=== PATIENT | female | born 1980 | race Two or more races ===

== ENCOUNTER 2016-08-13 21:47 | Emergency (ER) | payer SELFPAY ==
[~2016-08-13] VITALS: Ht 154.9 cm; Wt 82.0 kg
[2016-08-13] MEDS ORDERED: ONDANSETRON 2MG/ML, 2ML ONE (22:40)
[2016-08-13] MEDS ORDERED: MORPHINE SULFATE 4 MG/ML, 1ML ONE (22:40)
[2016-08-13 22:59] LABS: HCG UR OBC PASS
[2016-08-13] MEDS ORDERED: SODIUM CHLORIDE 0.9% 1,000ML IVBOLUS ONE (23:00)
[2016-08-13] MEDS ORDERED: ONDANSETRON 2MG/ML, 2ML IVPush ONE (23:00)
[2016-08-13] MEDS ORDERED: MORPHINE SULFATE 4 MG/ML, 1ML IVPush PRN (23:00)
[2016-08-13 23:04] LABS: BLOOD UREA NITROGEN 10 mg/dL (7-18)
[2016-08-13 23:08] LABS: ASPARTATE AMINO TRANSFERASE 78 U/L (15-37)
[2016-08-14 01:38] VITALS: BP 134/62
== END 2016-08-14 03:02 | disposition home or self-care (01) ==
LOC: ED 23:59
DX: O03.9 Complete or unspecified spontaneous abortion without complication (principal); R10.31 Right lower quadrant pain; R10.32 Left lower quadrant pain; R10.9 Unspecified abdominal pain
CPT/HCPCS: 36415; 76801; 80053; 81001; 81025; 83690; 84702; 85025; 87086; 88305; 93005; 96361; 96374; 96375; 99285; J2405; J7030